=== PATIENT | female | born 1990 | race Caucasian/White ===

== ENCOUNTER 2016-11-18 12:06 | Emergency (ER) | payer MEDICAID ==
[2016-11-18 12:20] VITALS: O2SAT 96
[2016-11-18 13:08] VITALS: PULSE 100; RESP 20; TEMP 98.4
[2016-11-18] MEDS ORDERED: ACETAMINOPHEN 325 MG TAB PO ONE (13:14)
[2016-11-18] MEDS ORDERED: AMOXICILLIN/CLAVULANATE POT 875/125 MG TAB PO ONE (13:14)
[2016-11-18 13:15] VITALS: BP 116/64
--- NOTE | 2016-11-18 13:27 | EDPHY ---
H & P Stated Complaint: sore throat, hoarse voice x 1.5 weeks Time Seen by Provider: 11/18/16 12:21 HPI/ROS: CHIEF COMPLAINT: Sore throat, nasal congestion, cough HISTORY OF PRESENT ILLNESS: 26-year-old female presents emergency department complaining of a sore throat, nasal congestion, cough x1 week. Patient was seen at [facility] 5 days ago and had a normal chest x-ray and negative influenza. She was discharged home codeine cough syrup and Tessalon Perles. Patient reports her symptoms are not improving though not worsening. She denies fevers or chills. Patient reports sinus pressure and a headache when bending over. She reports feeling a fullness in her ears. She denies chest pain. REVIEW OF SYSTEMS: A comprehensive 10 point review of systems is otherwise negative aside from elements mentioned in the history of present illness. Source: Patient Exam Limitations: No limitations - Personal History LMP (Females 10-55): Over 28 Days Ago Current Tetanus/Diphtheria Vaccine: Unsure Current Tetanus Diphtheria and Acellular Pertussis (TDAP): Unsure - Medical/Surgical History Hx Asthma: No Hx Chronic Respiratory Disease: No Hx Diabetes: No Hx Cardiac Disease: No Hx Renal Disease: No Hx Cirrhosis: No Hx Alcoholism: No Hx HIV/AIDS: No Hx Splenectomy or Spleen Trauma: No Other PMH: mental health - Social History Smoking Status: Never smoked - Physical Exam Exam: General: Alert, nontoxic. ENT: Tympanic membranes with erythema and bulging, external auditory canal, external ear and surrounding soft tissue including over the mastoid unremarkable. Nasopharynx is injected, there is yellow nasal discharge. Frontal and maxillary sinus tenderness to palpation. Oropharynx with erythema no edema. There is no exudate. No tonsillar hypertrophy. No asymmetry. The uvula is midline. No elevation of tongue. There is no hoarseness. No drooling, patient has good control of their oral secretions. No trismus. No stridor. Cardiac: Regular rate and rhythm. Respiratory: Lungs clear to auscultation bilaterally. Neurological: no meningismus. Skin: No rashes. Constitutional: Initial Vital Signs Temperature (C) 37.2 C 11/18/16 12:18 Heart Rate 115 H 11/18/16 12:18 Respiratory Rate 18 11/18/16 12:18 Blood Pressure 115/81 H 11/18/16 12:18 O2 Sat (%) 96 11/18/16 12:18 O2 Delivery Mode Room Air Allergies/Adverse Reactions: No Known Allergies Allergy (Unverified 11/18/16 12:17) Home Medications: Medication Instructions Recorded Albuterol Sulfate [PROVENTIL HFA] 2 puffs IH Q4-6PRN PRN #1 11/18/16 [email or web address] Amoxicillin/Clavulanate Pot 875 mg PO BID #14 tab 11/18/16 [Augmentin 875Mg] Fluticasone Nasal [Flonase Nasal 1 sprays NASAL DAILY #1 mdi 11/18/16 [facility] (RX)] INVEGA 11/18/16 Medical Decision Making ED Course/Re-evaluation: 26-year-old female with past medical history of schizophrenia and bipolar presents with cold symptoms x1 week. Patient has frontal and maxillary sinus tenderness to palpation, I will treat her with Augmentin for a acute sinusitis. She will be discharged with an albuterol inhaler prescription and Flonase prescription. She is given strict return precautions for any worsening symptoms. - Data Points Laboratory Results: 11/18/16 11/18/16 Unknown 12:20 Group A Strep Screen NEGATIVE (NEGATIVE) Group A Strep DNA Pending Medications Given: Discontinued Medications Acetaminophen (Tylenol) 650 mg PO EDNOW ONE Stop: 11/18/16 13:15 Last Admin: 11/18/16 13:20 Dose: 650 mg Amoxicillin/Clavulanate Potassium (Augmentin 875mg) 875 mg PO EDNOW ONE PRN Reason: Protocol Stop: 11/18/16 13:15 Last Admin: 11/18/16 13:19 Dose: 875 mg Departure - Departure Disposition: Home, Routine, Self-Care Clinical Impression: Acute sinusitis Qualifiers: Sinusitis location: maxillary Recurrence: non-recurrent Qualified Code(s): J01.00 - Acute maxillary sinusitis, unspecified Condition: Good Instructions: Sinusitis (ED) Additional Instructions: Take over the counter Tylenol and ibuprofen as instructed. Rest, drink plenty of fluids. Use a saline nasal rinse, humidifier at night, hot steam showers. Take antibiotics as prescribed, use 1 spray of Flonase daily for 7 days, use 2 puffs of the albuterol inhaler every 4-6 hours as needed for cough. Return to the ED for difficulty breathing, chest pain, other concerns. [facility] for symptoms that are not improving in the next 5-7 days. Referrals: [facility],. [Clinic] - As per Instructions Prescriptions: Albuterol Sulfate [PROVENTIL HFA] 2 puffs IH Q4-6PRN PRN #1 [email or web address] PRN Reason: Cough, Moderate Amoxicillin/Clavulanate Pot [Augmentin 875Mg] 875 mg PO BID #14 tab Fluticasone Nasal [Flonase Nasal [facility] (RX)] 1 sprays NASAL DAILY #1 mdi
== END 2016-11-18 14:00 | disposition home or self-care (01) ==
DX: J01.00 Acute maxillary sinusitis, unspecified (principal)